=== PATIENT | male | born 1985 | race Caucasian/White ===

== ENCOUNTER 2017-12-12 11:11 | Emergency (ER) | payer OTHER ==
[2017-12-12 11:17] VITALS: BP 131/82; PULSE 79; TEMP 98; BMI 37.0
[2017-12-12] MEDS ORDERED: IBUPROFEN 400 MG TABLET (FP) PO ONE ×2 (11:28)
[2017-12-12] MEDS ORDERED: DIPHTH,PERTUSS(ACELL),TET 0.5 ML DISP.SYRIN IM ONE (11:44)
--- NOTE | 2017-12-12 11:49 | PDOC ---
History of Present Illness - General Chief Complaint: Laceration Stated Complaint: LT FINGER LACERATION Time Seen by Provider: 12/12/17 11:21 History Source: Patient Exam Limitations: No Limitations (L 3/4 and 5 finger laceration at work today, using a cheese slicer) Past History - Travel Traveled outside of the country in the last 30 days: No Close contact w/someone who was outside of country & ill: No - Past Medical History Allergies/Adverse Reactions: Allergies Allergy/AdvReac Type Severity Reaction Status Date / Time No Known Allergies Allergy Verified 12/12/17 11:17 Home Medications: Ambulatory Orders Ibuprofen [Motrin -] 600 mg PO TID #21 tablet 10/28/14 Silver Sulfadiazine [Silvadene] 1 applic TP BID #60 gm 10/28/14 Ibuprofen 800 mg PO ACDIN 7 Days #21 tablet 12/12/17 COPD: No - Suicide/Smoking/Psychosocial Hx Smoking History: Current every day smoker Have you smoked in the past 12 months: No Number of Cigarettes Smoked Daily: 3 Information on smoking cessation initiated: No 'Breaking Loose' booklet given: 10/28/14 Hx Alcohol Use: No Substance Use Type: None Review of Systems - Review of Systems Is the patient limited Thai proficient: No Constitutional: No: Chills, Fever Musculoskeletal: Yes: Other (finger laceration--left) *Physical Exam - Vital Signs Last Vital Signs Temp Pulse Resp BP Pulse Ox 98 F 79 18 131/82 98 12/12/17 11:13 12/12/17 11:13 12/12/17 11:13 12/12/17 11:13 12/12/17 11:13 - Physical Exam General Appearance: Yes: Nourished Extremity: positive: Normal Capillary Refill, Normal Inspection, Normal Range of Motion, Other (L hand: + abrasion to 4th and 5th finger shaft, 0.5cm lac to MIP of 3rd finger, FROM, sensation intact, no tendon exponsure) Procedures - Laceration/Wound Repair Left Dorsal Finger 3rd digit Wound's Depth, Shape: superficial Betadine Prep: Yes Anesthesia: 2% Lidocaine Suture Size/Type: 3:0, nylon Number of Sutures: 2 Layer Closure: No Sterile Dressing Applied: Yes Splint Applied: No ED Treatment Course - Medications Given in the ED: ED Medications Discontinued Medications Generic Name Dose Route Start Last Admin Trade Name Freq PRN Reason Stop Dose Admin Ibuprofen 800 mg 12/12/17 11:28 12/12/17 11:34 Motrin - PO 12/12/17 11:29 800 mg ONCE ONE Administration Medical Decision Making - Medical Decision Making 12/12/17 11:47 32y/o M R hand dominant p/w L finger laceration sustained while using a cheese slicer at work 1hr [employer], unsure of last tetanus vaccine exam consistent with abrasion to 4 and 5th finger shaft of left hand, + 0.5cm laceration in lateral MIP joint of middle finger,no tendon exponsure, fROM lac repaired, 2 3.0 nylon stitches placed tetanus updated *DC/Admit/Observation/Transfer Diagnosis at time of Disposition: Finger laceration Qualifiers: Encounter type: initial encounter Finger: unspecified finger Damage to nail status: without damage Foreign body presence: without foreign body Laterality: left Qualified Code(s): S61.219A - Laceration without foreign body of unspecified finger without damage to nail, initial encounter - Discharge Dispostion Disposition: HOME Condition at time of disposition: Stable Decision to Admit order: No - Prescriptions Prescriptions: Ibuprofen 800 mg PO ACDIN 7 Days #21 tablet - Referrals - Patient Instructions Printed Discharge Instructions: DI for Laceration Repair Additional Instructions: Please keep area dry return to the ER or follow up PCP for suture removal in 10 days - Post Discharge Activity Forms/Work/School Notes: Back to Work
== END 2017-12-12 11:56 | disposition home or self-care (01) ==
LOC: JERFT 11:11
PROC: 0HQGXZZ Repair Left Hand Skin, External Approach (ICD-10-PCS; principal; 2017-12-12)
DX: S61.211A Laceration without foreign body of left index finger without damage to nail, initial encounter (principal); W27.4XXA Contact with kitchen utensil, initial encounter; Y93.G1 Activity, food preparation and clean up; Y92.511 Restaurant or cafe as the place of occurrence of the external cause; Y99.0 Civilian activity done for income or pay
CPT/HCPCS: 90715; 99281-25